=== PATIENT | male | born 1990 | race Caucasian/White ===

== ENCOUNTER → 2025-01-08 | Day surgery (SDC) | payer OTHER ==
[~2025-01-08] VITALS: Ht 175.3 cm; Wt 74.1 kg
[~2025-01-08] MED LIST: ACETAMINOPHEN 1000MG/100ML IV BAG As Ordered ONE; ALBU8.5H; KETOROLAC 30 MG/ML 1 ML VIAL As Ordered ONE; LIDOCAINE 2% 100 MG/5 ML SDV (FOR ANES.) As Ordered ONE; LR 1,000 ML IV SCH; MIDAZOLAM INJ 2 MG/2 ML VIAL As Ordered ONE; ONDANSETRON 4MG 2ML VIAL As Ordered ONE; ROCURONIUM BROMIDE 50MG/5ML VIAL As Ordered ONE; SUGAMMADEX SODIUM 500 MG/5 ML VIAL As Ordered ONE; TIZA2TA PO; dexAMETHasone 4 MG/ML 1 ML VIAL As Ordered ONE; dexmedeTOMIDine (4 MCG/ML) 200 MCG/50 ML BTL As Ordered ONE
[2025-01-08] MEDS: ceFAZolin SOD 2 GM IV ONCE IV ONE (12:28)
[2025-01-08] MEDS: ONDANSETRON 4MG 2ML VIAL IV PRN (13:30)
[2025-01-08] MEDS: HYDROMORPHONE HCL 0.5 MG/0.5 ML SYRINGE IV PRN (13:35)
[2025-01-08 16:00] VITALS: BP 140/73; TEMP 97.9; O2SAT 99
== END | disposition home or self-care (01) ==
LOC: M SDC 11:31
PROVIDERS: ATTEND Surgery
DX: K42.0 Umbilical hernia with obstruction, without gangrene (principal); H91.3 Deaf nonspeaking, not elsewhere classified; F41.9 Anxiety disorder, unspecified; G43.909 Migraine, unspecified, not intractable, without status migrainosus; J45.909 Unspecified asthma, uncomplicated; Z79.51 Long term (current) use of inhaled steroids; Z91.018 Allergy to other foods
CPT/HCPCS: 49592; C1781; J0131; J0665; J0690; J1100; J1171; J1885; J2250; J2405; J3010; S2900